=== PATIENT | female | born 1965 | race Hispanic/Latino ===

== ENCOUNTER → 2023-10-20 | Outpatient (CLI) | payer OTHER, SELFPAY | END | disposition home or self-care (01) | LOC: SHCH 14:42 | PROVIDERS: ATTEND Internal Medicine Cardiovascular Disease | DX: I51.7 Cardiomegaly (principal); R07.9 Chest pain, unspecified; R06.00 Dyspnea, unspecified | CPT/HCPCS: 93306 ==

== ENCOUNTER → 2023-12-04 | Outpatient (CLI) | payer OTHER | END | disposition home or self-care (01) | LOC: OIH 10:24 | PROVIDERS: ATTEND Internal Medicine Cardiovascular Disease | DX: Z13.6 Encounter for screening for cardiovascular disorders (principal) | CPT/HCPCS: 75571 ==